=== PATIENT | female | born 1960 | race Caucasian/White ===

== ENCOUNTER 2016-11-26 11:33 | Emergency (ER) | payer OTHER, MEDICARE ==
[~2016-11-26] VITALS: Ht 167.6 cm; Wt 95.0 kg
[~2016-11-26 11:33] MED LIST: AMLO-110 PO; ASPCH81X PO; ATEN-173 PO; CLOP1TAB15 PO; INSU100I2 SC; INSUINJ4 SQ; LISI-729 PO; NTRGSL/4 UT; ROSU20TA PO
[2016-11-26 11:38] VITALS: TEMP 36.9; Ht 167.6 cm; Wt 95.0 kg
[2016-11-26] MEDS ORDERED: INSDGI SC (11:51)
[2016-11-26] MEDS ORDERED: CHOLCAP5 PO (11:51)
[2016-11-26] MEDS ORDERED: TRAMADOL HCL 50 MG TAB PO STA (12:05)
--- NOTE | 2016-11-26 12:38 | DIAGNOSTIC IMAGING REPORT ---
LEFT KNEE 3 VIEWS CLINICAL HISTORY: Posterior left knee pain. COMPARISON: None FINDINGS: Alignment of the left knee is anatomic. There is no fracture or joint effusion. No suspicious osseous lesion is present. There is extensive vascular calcification. Joint spaces are preserved. There is minimal osteophytosis. IMPRESSION: 1. No acute fracture or joint effusion of the left knee. 2. Preserved joint spaces of the left knee with minimal osteophytosis. 3. Extensive vascular calcification. Electronically signed by: Mateo Zamora M.D. 11/26/2016 12:37 PM Dictated Date/Time: 11/26/2016 12:36 PM
--- NOTE | 2016-11-26 13:01 | DIAGNOSTIC IMAGING REPORT ---
LEFT LOWER EXTREMITY VENOUS DOPPLER CLINICAL HISTORY: Posterior left knee pain and thigh pain. COMPARISON STUDY: No previous studies for comparison. TECHNIQUE: Sonography of the deep venous system of the left lower extremity was performed. Compression and augmentation were evaluated. FINDINGS: The left common femoral, superficial femoral and popliteal veins were compressible. Augmentation was normal. Flow was shown within the deep calf vessels. Note is made of a 3.1 x 0.7 x 0.7 cm left popliteal fluid collection. IMPRESSION: 1. No evidence of deep venous thrombus within the left lower extremity. 2. Suspected small left popliteal cyst. Electronically signed by: Mateo Zamora M.D. 11/26/2016 1:00 PM Dictated Date/Time: 11/26/2016 12:59 PM
[2016-11-26] MEDS ORDERED: OXYC-57 PO (13:42)
[2016-11-26 13:49] VITALS: BP 139/70; PULSE 77; O2SAT 95
--- NOTE | 2016-11-27 20:48 | EMERGENCY ROOM VISIT NOTE ---
ED Visit Note First contact with patient: 11:42 Chief Complaint: Left leg pain. History of Present Illness: Ms. Monge is a 56-year-old white female who ambulates into the ED complaining of left leg pain. Patient reports approximately one week ago she had her leg stretched out to get behind the driving we'll in her car and developed mild pain in the popliteal area. Since that time her pain has been constant and slowly moving proximally into the posterior thigh. She describes her pain as a sharp and cramping sensation. She rates her discomfort 7/10. Her pain worsens with palpation, knee flexion and extension and hip flexion and extension. She has not identified any alleviating factors related to the pain. She attempted [id number] medications without relief of her discomfort. She denies fevers, chills, sweats, skin eruptions, skin color changes, any recent new or repetitive trauma, back pain, buttocks pain, leg weakness/numbness /tingling, hip joint pain, lower leg pain, ankle pain, foot pain, leg swelling/ cramping, previous significant injuries or surgeries to the lower leg. Review of Systems: As noted above in history of present illness. 8 body systems were reviewed and found to be negative as noted above. Past Medical History: Diabetes, hypertension, pyelonephritis, lumbar bulging disc, kidney stones, status post angioplasty, hysterectomy, endometrial ablation and unspecified left wrist surgery. Current Medications: Medications Dose Route/Sig Max Daily Dose Days Date Category Dose Instructions Vitamin D3 (Cholecalciferol) 5,000 Unit Cap 1 Tab PO HS 11/26/16 Reported Lantus (Insulin Glargine) 100 Unit/Ml Inj 52 Units SC HS 11/26/16 Reported Crestor (Rosuvastatin Calcium) 20 Mg Tab 20 Mg PO HS 03/17/16 Reported Humalog Kwikpen (Insulin Lispro (Human)) 100 Unit/Ml Inj SC WM 03/17/16 Reported SLIDING SCALE DIRECTED Nitrostat (Nitroglycerin) 0.4 Mg Tab 0.4 Mg UT PRN 03/17/16 Reported Aspirin Chewable (Aspirin) 81 Mg Chew 81 Mg PO HS 03/17/16 Reported Zestril (Lisinopril) 5 Mg Tab 5 Mg PO HS 03/17/16 Reported Tenormin (Atenolol) 25 Mg Tab 25 Mg PO HS 03/17/16 Reported Plavix (Clopidogrel Bisulfate) 75 Mg Tab 75 Mg PO HS 03/17/16 Reported Norvasc (Amlodipine Besylate) 5 Mg Tab 5 Mg PO HS 03/17/16 Reported Allergies to Medications: Erythromycin, dextromethorphan, erythromycin, Lipitor and ticlopidine. Social History: Patient is not employed; she feels safe in her home environment ; she denies to tobacco and alcohol use Physical Examination: Vital Signs: Date Time Temp Pulse Resp B/P Pulse Ox O2 Delivery O2 Flow Rate FiO2 11/26/16 13:49 77 16 139/70 95 11/26/16 13:42 77 16 139/70 95 Room Air 11/26/16 11:38 36.9 77 16 138/73 96 GENERAL: 56-year-old female in mild to moderate distress due to pain, nontoxic- appearing, afebrile and hemodynamically stable. NEUROLOGICAL: Awake, alert and oriented to person, place and time. Answering questions appropriately and following commands. SKIN: Warm, dry and pink. No soft tissue eruptions or trauma noted. BACK: No tenderness over the bony thoracic and lumbar spines. No tenderness or muscle spasm in the lumbar paraspinous musculature. THORAX: Lungs sounds are clear to auscultation and equal bilaterally with symmetrical chest wall. ABDOMEN: Obese, soft and nontender. Positive bowel sounds in all quadrants. No guarding, rigidity or organomegaly. LEFT LOWER EXTREMITY: No gross bony deformities. No shortening or malrotation. No tenderness in the hip, lower leg, ankle or foot. No tenderness over the bony structures of the knee including the patella, joint line, distal femur and proximal tibia. Patient has moderate tenderness over the tendinous attachments of the semitendinosus and semimembranosus muscles as well extension into the posterior aspect of the thigh. Also once it goes into the posterior aspect of the thigh there is tenderness over the biceps femoris muscle. I do not appreciate any spasm. I do not feel any deficit within this muscle group. There is no local ecchymosis or swelling. She had limited range of motion and hip extension and knee flexion due to pain. She had pain with bounce test. Negative ballottement test. Negative patellar apprehension test. No laxity of the collateral cruciate ligaments. Meniscus were not test due to limited range of motion. With the thigh and in the stabilize she had full range of motion in plantar flexion and dorsiflexion of the ankle against resistance. She was able to distinguish light sensations through all dermatomes of the lower leg and foot. Distal pulses and capillary refill were intact. No calf tenderness or cords. ED Course: Patient is assessed as noted above. I had a lengthy conversation with the patient see specifically expressed concerns for knee arthritis as well as DVT. Left Knee X-Rays: Were read by myself and the radiologist showing no acute fractures or dislocations. No joint effusion. Preserved joint space with minimal osteophytosis. Extensive vascular calcification. Venous Doppler Ultrasound: Was reviewed by myself and read by the radiologist showing no evidence of deep vein thrombus and a suspected small popliteal cyst. Patient was given 50 mg of Ultram by mouth for pain prior to her testing. Patient was offered crutches or walker since she refused. Patient was educated about tonight's findings and instructed on her treatment plan; she verbalizes understanding and agreement with this plan. Clinical Impression: Left leg pain. Decision-Making: Initially my differential diagnosis I considered muscle strain , DVT, fracture and other causes. Disposition: Patient discharged home in stable condition; prior to departure she was reassessed and subjectively reported she was feeling better and rated her discomfort 3/10. Plan: Patient was placed on a sliding pain scale of acetaminophen and Percocet; appropriate precautions were discussed with the patient for narcotic use. Additionally patient was encouraged to rest and use ice on the area. Patient was encouraged to follow-up with her primary care provider for recheck and possible referral. Patient was encouraged return the ED for uncontrolled pain, fevers, leg weakness /numbness/tingling, genital paresthesias, bowel and bladder dysfunction or any new/concerning symptoms.
== END 2016-11-26 13:50 | disposition home or self-care (01) ==
LOC: C.EDB 11:36 → C.EDD 13:50
DX: M79.605 Pain in left leg (principal); E11.9 Type 2 diabetes mellitus without complications; I10 Essential (primary) hypertension; M51.26 Other intervertebral disc displacement, lumbar region; Z87.442 Personal history of urinary calculi